=== PATIENT | male | born 1965 | race Caucasian/White ===

== ENCOUNTER 2018-04-18 20:44 | Observation (INO) ==
--- NOTE | 2018-04-18 21:54 | Emergency Department Note ---
Disposition Clinical Impression: Cellulitis and abscess of left leg Disposition: Admitted As Inpatient Condition: Good Forms: ED Satisfaction Letter Time of Disposition: 22:24 General Adult HPI - General Chief complaint: ED Wound/Laceration Stated complaint: Spider Bite L Calf Time Seen by Provider: 04/18/18 21:21 Source: patient Limitations: no limitations Nursing Notes Reviewed: Yes Vital Signs Reviewed: Yes - History of Present Illness HPI Narrative: 52 yo male presents with a 2 day history of "spider bite" to left lower leg. He first noticed the spot on his lateral calf yesterday evening. states that it had 2 small points in the middle, one was a scab and one was a pustule with surrounding erythema the size of the end of his finger. He popped the pustule, but nothing came out. The area of erythema has increased significantly today, as well as new onset swelling of circumferential calf and warmth. PMH of asthma, GERD, HTN. Current smoker. Rare alcohol use. Denies drug use. Pain Scale: 10 - Related Data Home Medications Medication Instructions Recorded Confirmed Albuterol Sulfate [Ventolin Hfa] 2 puff IH Q6H PRN 04/18/18 04/18/18 Amlodipine Besylate 10 mg PO DAILY 04/18/18 04/18/18 EPINEPHrine [Epipen] 0.3 mg IM ONCE PRN 04/18/18 04/18/18 Escitalopram [Lexapro] 10 mg PO DAILY 04/18/18 04/18/18 Lisinopril 2.5 mg PO DAILY 04/18/18 04/18/18 Meloxicam [Mobic] 15 mg PO DAILY 04/18/18 04/18/18 Montelukast [Singulair] 10 mg PO DAILY 04/18/18 04/18/18 Omeprazole [PriLOSEC] 40 mg PO DAILY 04/18/18 04/18/18 Quetiapine Fumarate [SEROquel] 100 mg PO HS 04/18/18 04/18/18 diazePAM [Valium] 10 mg PO BID 04/18/18 04/18/18 Allergies Allergy/AdvReac Type Severity Reaction Status Date / Time venom-honey bee Allergy Swelling Verified 12/22/17 16:40 [bee venom (honey bee)] of Lip/Tongue/Throat Constitutional: Denies: fever, chills Eyes: Denies: vision change ENT ED: Denies: congestion Cardiovascular: Denies: chest pain Respiratory: Reports: dyspnea (chronic). Denies: cough Gastrointestinal: Denies: abdominal pain, nausea, vomiting, diarrhea, constipation Genitourinary: Denies: dysuria Musculoskeletal: Reports: back pain (chronic) Neurological: Denies: headache Past Medical History - Past Medical History Medical history: Reports: asthma, hypertension Surgical history: Reports: herniorrhaphy (PHAN LAP UMB HERNIA 03/20/2016), other (T&A; nasal reconstruction; hyperplastic polyps on colonoscopy 10/2015) Psychiatric history: Reports: bipolar, depression - Social History Smoking Status: Current every day smoker Smokeless Tobacco Status: No Alcohol use: Reports: none Drug use: Reports: none Physical Exam - General Limitations: no limitations General appearance: alert, in no apparent distress - Head Head exam: atraumatic, normocephalic, normal inspection - Eye Eye exam: Present: normal appearance - ENT ENT exam: mucous membranes moist - Neck Neck exam: Present: normal inspection - Chest Chest inspection: Present: normal inspection - Respiratory Respiratory exam: Present: normal lung sounds bilaterally - Cardiovascular Cardiovascular exam: Present: regular rate, normal rhythm, normal heart sounds - Abdominal Exam Abdominal exam: Present: soft, Non-Tender. Absent: tenderness, distention, guarding, rebound, rigidity - Extremities Exam Extremities exam: Absent: normal inspection - Expanded Lower Extremity Exam Lower leg exam: Present: swelling (circumferential swelling of left calf at the level of erythema, warmth over area of swelling), erythema (2.5x2.5cm area of erythema (petechial on edges becoming coalescent for main area) over left lateral calf with central blackened native with 2 pinpoint spots - no fluctuance or necrosis) Neurovascular/Tendon exam: Absent: pulse deficit - Back Exam Back exam: Present: normal inspection - Neurological Exam Neurological exam: Present: alert, oriented X3 - Psychiatric Psychiatric exam: Present: normal affect, normal mood - Skin Skin exam: Present: warm, dry, intact, normal color Course Course Narrative: 52 yo male with possible spider bite vs cellulitis vs early abscess. Blackened center may become necrotic in the next 12-48 hours. Currently nothing to debride , no fluctuance. Admit for IV antibiotics overnight. He will be re-assessed in the morning. Vital Signs Temperature 98.1 F 04/18/18 20:45 Pulse Rate 78 04/18/18 20:45 Respiratory Rate 16 04/18/18 20:45 Blood Pressure 140/82 04/18/18 20:45 O2 Sat by Pulse Oximetry 95 04/18/18 20:45 Temperature 98.1 F 04/18/18 20:45 Pulse Rate 78 04/18/18 20:45 Respiratory Rate 16 04/18/18 20:45 Blood Pressure 140/82 04/18/18 20:45 O2 Sat by Pulse Oximetry 95 04/18/18 20:45 Oxygen Delivery Oxygen Delivery Room Air Medical Decision Making - Lab Data Result diagrams: 04/18/18 21:48 Attestation Statement - Attestation Attestation: I examined this patient and my medical decision-making was reviewed with the Resident Physician. I agree with the documented findings, disposition and treatment plan as described except to the extent set forth below. Findings consistent with cellulitis of the left lower extremity with necrotic center. I would proceed with observation overnight given the rapid progression of cellulitis. We will start vancomycin and Cipro for gram-negative coverage, admitted for further management.
[2018-04-18 22:02] LABS: Basophils # 0.1 K/mcL (0.0-0.2); Basophils % 0.6 %; Eosinophils # 0.1 K/mcL (0.0-0.6); Eosinophils % 1.4 %; Hematocrit 42.2 % (37.5-50.1); Hemoglobin 14.5 g/dL (12.9-16.9); Immature Granulocytes % 0.3 % (0-4); Lymphocytes # 2.4 K/mcL (0.6-4.6); Mean Corpuscular HGB Conc 34.4 g/dL (31.6-35.5); Mean Corpuscular Volume 93.2 fL (83.0-100.0); Monocytes # 1.2 K/mcL (0.0-1.3); Monocytes % 11.2 %; Neutrophils # 6.6 K/mcL (1.6-8.9); Platelet Count 198 K/mcL (140-400); Red Blood Count 4.53 M/mcL (4.19-5.50); Red Cell Distribution Width 12.5 % (11.5-14.5); Segmented Neutrophils % 63.5 %
[2018-04-18 22:25] LABS: Alanine Aminotransferase 12 Units/L (7-52); Albumin 4.5 g/dL (3.5-5.7); Alkaline Phosphatase 78 Units/L (34-104); Aspartate Amino Transferase 12 Units/L (13-39); BUN/Creatinine Ratio 19 (6-26); Bilirubin,Total 0.5 mg/dL (0.3-1.0); Blood Urea Nitrogen 19 mg/dL (6-20); C-Reactive Protein 24 mg/L (Less than 10); Calcium 9.9 mg/dL (8.6-10.3); Carbon Dioxide 25 mEq/L (23-29); Chloride 107 mEq/L (98-107); Globulin 2.2 g/dL (2.4-3.5); Glucose 103 mg/dL (70-105); Osmolality,Calculated 289 (280-300); Potassium 3.7 mEq/L (3.5-5.1); Sodium 138 mEq/L (136-145); Total Protein 6.7 g/dL (6.4-8.9); eGFR For Non-African Americans > 60 (> 60)
[2018-04-18] MEDS ORDERED: *HR* FentaNYL (PF) 100 MCG/2 ML VIAL IVP ONE (22:48)
[2018-04-19] MEDS ORDERED: Naloxone 0.4 MG/ML INJ IVP PRN (03:43)
[2018-04-19] MEDS ORDERED: Acetaminophen 325 MG TABLET PO PRN (03:43)
--- NOTE | 2018-04-19 03:52 | Internal Med History&Physical ---
Date of Encounter: 04/19/18 Time of Encounter: 03:30 Internal Medicine - H&P: HPI Chief complaint: Cellulitis Admitted From: Home Plans for Post Hospital Care: Home History of present illness: Mr. Valenzuela is a 52 year old male Patient states yesterday he noticed a area of redness on his left lower leg after removing his boots after coming home from work. The area was tender to palpation and about the size of his fingernail. Gradually grew in size, he attempted to pop it but nothing seemed to come out. His thought it looked like he was bit by a bug, as there were two small openings in the middle of the redness. Patient does not remember getting bit, feeling a bite, or seeing any bugs in his boots or in his surroundings[place] works in the [employer] however. He has never had anything like this before. He denies associating symptoms like nausea, vomiting, fever, chills, chest pain, abdominal pain. He is able to ambulate normally, but does have some pain in the left leg in the area of his wound. The area of redness has now grown to the size of about 3 cm in circumference and has increased in pain. This prompted him to come to the emergency room for further evaluation. The emergency room patient's blood work showed a CRP of 24 but otherwise vitals and lab work was within normal limits. No imaging was done in the emergency room and no cultures were drawn prior to starting antibiotic therapy. He was admitted for further management of his cellulitis. Past Med Surg Social Fam HX - Past Medical History Medical history: asthma, GERD, hypertension Additional medical history: pinched sciatica nerve Psychiatric history: bipolar, depression - Past Surgical History Surgical History: herniorrhaphy, other Additional surgical history: nasal reconstruction, colonoscopy-hyperplastic polyps - Social History Smoking Status: Current every day smoker Smokeless Tobacco Status: No Alcohol use: none Drug use: none Internal Medicine - H&P: Meds Albuterol Sulfate [Ventolin Hfa] 2 puff IH Q6H PRN 04/18/18 [History] Amlodipine Besylate 10 mg PO DAILY 04/18/18 [History] EPINEPHrine [Epipen] 0.3 mg IM ONCE PRN 04/18/18 [History] Escitalopram [Lexapro] 10 mg PO DAILY 04/18/18 [History] Lisinopril 2.5 mg PO DAILY 04/18/18 [History] Meloxicam [Mobic] 15 mg PO DAILY 04/18/18 [History] Montelukast [Singulair] 10 mg PO DAILY 04/18/18 [History] Omeprazole [PriLOSEC] 40 mg PO DAILY 04/18/18 [History] Quetiapine Fumarate [SEROquel] 100 mg PO HS 04/18/18 [History] diazePAM [Valium] 10 mg PO BID 04/18/18 [History] 3 Allergy/AdvReac Type Severity Reaction Status Date / Time venom-honey bee Allergy Swelling Verified 12/22/17 16:40 [bee venom (honey bee)] of Lip/Tongue/Throat All Systems PM: A 10-system review of systems was performed and is negative for pertinent findings except as documented above in the HPI. - Constitutional Vitals: Temp Pulse Resp BP Pulse Ox 97.9 F 59 16 110/63 96 04/19/18 00:54 04/19/18 00:54 04/19/18 00:54 04/19/18 00:54 04/19/18 00:54 General appearance: Present: cooperative, A&O X 3, pleasant, no acute distress, answers questions appropriately - Head Head exam: Present: normal inspection - Eye Eye exam: Present: EOMI, normal appearance - Respiratory Respiratory exam: Present: decreased breath sounds, wheezes. Absent: chest wall tenderness, respiratory distress - Cardiovascular Cardiovascular exam: Present: RRR. Absent: diastolic murmur, systolic murmur - GI/Abdominal GI/Abdominal exam: Present: normal bowel sounds, soft. Absent: tenderness - Extremities Exam Extremities exam: Present: tenderness, warm, radial pulses palpable and symmetrical. Absent: pedal edema Additional comments: Left lower extremity tender to palpation in the left lateral andre midway down lower leg. There is an area of erythema approximately 3-4 cm in circumference with mild swelling and to small circular openings in the center. No erythema beyond the borders of the wound. No other lesions noted on lower legs - Neurological Exam Neurological exam: Present: no focal deficits, strengths equal and symetr throughout. Absent: motor sensory deficit, facial droop, speech deficit - Skin Skin exam: Present: dry, normal color, warm Additional comments: Except as above on the extremities exam Internal Med - H&P Results - Labs CBC & Chem 7: 04/18/18 21:48 04/18/18 21:48 - Assessment and plan (1) Cellulitis of left leg Current Visit: Yes Status: Acute Assessment and plan: Patient has left lower leg cellulitis. Appears superficial but there is some swelling in the area. Tenderness to palpation no obvious abscess seen. Emergency room started patient on vancomycin and ciprofloxacin. No blood cultures were drawn prior to starting antibiotics no wound cultures drawn has no culture bone material present. The area of erythema has been traced with a permanent marker, and currently there is no evidence of erythema encroachment beyond the border of this line. Patient does have a history of allergy to bee venom, but this does not appear to be from a bee sting. Continue antibiotics Continue to monitor for worsening signs of infection or anaphylactic reaction (2) Wheezing on expiration Current Visit: Yes Status: Acute Assessment and plan: Patient has significant smoking history one pack cigarettes per day. He is wheezy on exam, and uses nebulizers and breathing treatments at home. Duonebs as needed Continue to monitor (3) Nicotine dependence Current Visit: Yes Status: Acute Assessment and plan: 1 pack per day smoker. Wheezy on exam, will use breathing treatments while in the hospital Qualifiers: Qualified Code(s): F17.210 - Nicotine dependence, cigarettes, uncomplicated (4) GERD (gastroesophageal reflux disease) Current Visit: Yes Status: Acute Assessment and plan: Patient takes omeprazole at home. Continue current management Qualifiers: Qualified Code(s): K21.9 - Gastro-esophageal reflux disease without esophagitis (5) DVT prophylaxis Current Visit: Yes Status: Acute Assessment and plan: Heparin subcutaneous - Time Spent With Patient Total time spent is greater than 50% in coordination of care (as documented) at patient's floor/unit and/or counseling patient: Greater than 35 minutes
[2018-04-19] MEDS ORDERED: Vancomycin 1,750 MG in 0.9 % Sodium Chloride 250 ML IVPB SCH (04:00)
[2018-04-19] MEDS: *HR* Heparin 5,000 UNIT/ML VIAL SQ SCH ×2 (05:04→18:41)
[2018-04-19] MEDS: *HR* HYDROcodone/Acet 5/325 mg TABLET PO PRN ×3 (05:05→20:58)
[2018-04-19 06:42] LABS: Hematocrit 41.7 % (37.5-50.1); Hemoglobin 14.1 g/dL (12.9-16.9); Mean Corpuscular HGB Conc 33.8 g/dL (31.6-35.5); Mean Corpuscular Hemoglobin 32.5 pg (28.0-33.3); Mean Corpuscular Volume 96.1 fL (83.0-100.0); Mean Platelet Volume 9.3 fL (9.4-12.4); Platelet Count 186 K/mcL (140-400); Red Blood Count 4.34 M/mcL (4.19-5.50); Red Cell Distribution Width 12.4 % (11.5-14.5)
[2018-04-19 06:59] LABS: BUN/Creatinine Ratio 18 (6-26); Blood Urea Nitrogen 18 mg/dL (6-20); Calcium 9.2 mg/dL (8.6-10.3); Carbon Dioxide 21 mEq/L (23-29); Chloride 107 mEq/L (98-107); Glucose 157 mg/dL (70-105); Osmolality,Calculated 291 (280-300); Potassium 3.8 mEq/L (3.5-5.1); Sodium 138 mEq/L (136-145); eGFR For Non-African Americans > 60 (> 60)
[2018-04-19] MEDS: Ipratropium/Albuterol Neb 3 ML IH PRN ×2 (08:17→18:49)
[2018-04-19] MEDS ORDERED: *HR* FentaNYL (PF) 100 MCG/2 ML VIAL IVP ONE (10:16)
[2018-04-19] MEDS ORDERED: Lidocaine -MPF 1% 5 ML AMPUL INFILT ONE (10:46)
--- NOTE | 2018-04-19 11:59 | General Surgery Consult Note ---
Date of Encounter: 04/19/18 Time of Encounter: 11:45 Assessment and Plan (1) Cellulitis and abscess of left leg Current Visit: Yes Status: Acute I&D complete at the bedside Cultures obtained- gram stain, aerobic and anaerobic cultures May transition to PO antibiotics May discharge from a surgical standpoint May remove packing 04/20/18 and cover with dry dressing F/U prn with surgery Please call with any further questions/concerns History of Present Illness Consult date: 04/19/18 Reason for consult: other (LLE cellulitis/abscess) Requesting physician: Giana Kaye History of present illness: Mr. Valenzuela is a 52 year old male who presented to the ED last evening with complaints of LLE pain and redness. 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 He states when he returned home that night and changed his clothes he noticed a reddened area to his LLE. He states that it looked like a bite linda. He reports that the area has continued to have increased tenderness and redness. He reports a central area which is black which concerned him. He reported to the ED for further evaluation. He denies any fevers or chills. Denies any shortness of breath or chest pains. Denies any numbness/tingling to his LLE. He states that he has never experienced anything like this in the past. We have been asked to see and evaluate the patient for further recommendations. Past Med Surg Social Fam HX - Past Medical History Source: patient Medical history: asthma, GERD, hypertension Additional medical history: pinched sciatica nerve Psychiatric history: bipolar, depression - Past Surgical History Surgical History: herniorrhaphy (lap umbilical repair 07/2016), other (T&A, colonoscopy 10/2015) Additional surgical history: nasal reconstruction, colonoscopy-hyperplastic polyps - Social History Smoking Status: Current every day smoker Smokeless Tobacco Status: No Alcohol use: none Drug use: none Occupational status: employed Current living situation: Home - Independent Activity Level: Independent ambulation - Family History Father Living Status: Age at : 57 Cause of : Lymphoma Hx Family Cancer: Yes (Lymphoma) Sister Hx Family Neurologic Disorders: Yes (CVA) Mother Living Status: Age at : 57 Cause of : Pancreatic cancer Hx Family Cancer: Yes (Pancreatic cancer) Paternal Grandmother Living Status: Cause of : Pancreatic cancer Hx Family Cancer: Yes (Pancreatic cancer) Maternal Grandmother Living Status: Hx Family Cardiac Disorders: Yes (CHF) Medications and Allergies Albuterol Sulfate [Ventolin Hfa] 2 puff IH Q6H PRN 04/18/18 [History] Amlodipine Besylate 10 mg PO DAILY 04/18/18 [History] EPINEPHrine [Epipen] 0.3 mg IM ONCE PRN 04/18/18 [History] Escitalopram [Lexapro] 10 mg PO DAILY 04/18/18 [History] Lisinopril 2.5 mg PO DAILY 04/18/18 [History] Meloxicam [Mobic] 15 mg PO DAILY 04/18/18 [History] Montelukast [Singulair] 10 mg PO DAILY 04/18/18 [History] Omeprazole [PriLOSEC] 40 mg PO DAILY 04/18/18 [History] Quetiapine Fumarate [SEROquel] 100 mg PO HS 04/18/18 [History] diazePAM [Valium] 10 mg PO BID 04/18/18 [History] 3 Allergy/AdvReac Type Severity Reaction Status Date / Time venom-honey bee Allergy Swelling Verified 12/22/17 16:40 [bee venom (honey bee)] of Lip/Tongue/Throat Review of Systems All systems PM: reviewed and no additional remarkable complaints except as stated (in the HPI) All systems PM: The remainder of the systems were reviewed and are negative General Surgery Exam Initial Vital Signs Temp Pulse Resp BP Pulse Ox 98.1 F 78 16 140/82 95 04/18/18 20:45 04/18/18 20:45 04/18/18 20:45 04/18/18 20:45 04/18/18 20:45 - General physical appearance well developed, well nourished, no distress - Eyes PERRL, normal ocular movement - ENT normal mucosa, atraumatic, normocephalic - Neck trachea midline - Respiratory normal expansion, normal respiratory effort, clear to auscultation - Cardiovascular Cardiovascular exam: Present: RRR - Abdomen Abdomen general surgery: Present: bowel sounds present, soft, non tender - Integumentary Integumentary general surgery: Present: warm and dry, other (LLE with area of ecchymosis with central necrosis and minimal fluctuance, tender to examination) - Neurologic Present: CN 2-12 grossly intact - Musculoskeletal Present: normal gait, normal posture - Psychiatric Psychiatric general surgery: Present: appropriate, oriented to person, oriented to place, oriented to time, speech is normal, memory intact Exam Initial Vital Signs Temp Pulse Resp BP Pulse Ox 98.1 F 78 16 140/82 95 04/18/18 20:45 04/18/18 20:45 04/18/18 20:45 04/18/18 20:45 04/18/18 20:45 Results - Labs 04/19/18 05:54 04/19/18 05:54 Abnormal lab results MPV 9.3 fL (9.4-12.4) L 04/19/18 05:54 Carbon Dioxide 21 mEq/L (23-29) L 04/19/18 05:54 Glucose 157 mg/dL (70-105) H 04/19/18 05:54 AST 12 Units/L (13-39) L 04/18/18 21:48 C-Reactive Protein 24 mg/L (Less than 10) H 04/18/18 21:48 Globulin 2.2 g/dL (2.4-3.5) L 04/18/18 21:48 Diabetes panel 04/19/18 Range/Units 05:54 Sodium 138 (136-145) mEq/L Potassium 3.8 (3.5-5.1) mEq/L Chloride 107 (98-107) mEq/L Carbon Dioxide 21 L (23-29) mEq/L BUN 18 (6-20) mg/dL Creatinine 1.00 (0.70-1.30) mg/dL Glucose 157 H (70-105) mg/dL Calcium 9.2 (8.6-10.3) mg/dL Calcium panel 04/19/18 Range/Units 05:54 Calcium 9.2 (8.6-10.3) mg/dL Pituitary panel 04/19/18 Range/Units 05:54 Sodium 138 (136-145) mEq/L Potassium 3.8 (3.5-5.1) mEq/L Chloride 107 (98-107) mEq/L Carbon Dioxide 21 L (23-29) mEq/L BUN 18 (6-20) mg/dL Creatinine 1.00 (0.70-1.30) mg/dL Glucose 157 H (70-105) mg/dL Calcium 9.2 (8.6-10.3) mg/dL Adrenal panel 04/19/18 Range/Units 05:54 Sodium 138 (136-145) mEq/L Potassium 3.8 (3.5-5.1) mEq/L Chloride 107 (98-107) mEq/L Carbon Dioxide 21 L (23-29) mEq/L BUN 18 (6-20) mg/dL Creatinine 1.00 (0.70-1.30) mg/dL Glucose 157 H (70-105) mg/dL Calcium 9.2 (8.6-10.3) mg/dL All other labs normal. Consult Discharge Plan - Plan Referrals: Jaja Krishna, [employer] [Primary Care Provider] - - Attending Attestation For this encounter, I have reviewed the FIRE PROTECTION INSPECTOR or PA documentation, treatment plan, and medical decision making; and I have had face to face time with this patient.
--- NOTE | 2018-04-19 12:02 | General Surgery Procedure Note ---
Date of procedure: 04/19/18 Pre-op diagnosis: LLE cellulitis/abscess Post-op diagnosis: same Procedure: After informed consent was obtained and timeout completed, the patient's left lower extremity was prepped and draped. The area was localized with 7 ML's of 1 % lidocaine. After achieving appropriate localization, a cruciate incision was made over the most fluctuant area using a size 11 blade. There was immediate return of a small amount of blood tinged drainage. The cavity was further opened and decompressed using hemostats. Gram stain, aerobic, and anaerobic cultures were obtained. The cavity was then packed with 1/4 inch plain gauze and covered with a dry dressing. Complications: none Anesthesia: local Surgeon: Indira Street Estimated blood loss (cc): 1 Pathology: other (gram stain, aerobic and anaerobic cultures) Condition: stable Disposition: no change
[2018-04-19] MEDS ORDERED: Nicotine 14 MG PATCH.TD24 TD SCH (13:30)
--- NOTE | 2018-04-19 15:38 | Event Note ---
Date of Encounter: 04/19/18 Time of Encounter: 15:37 Evaluated patient earlier today. His pain is improved in the left lower extremity. However it gets worse with any movement. Consulted surgery and patient underwent incision and drainage. Will follow culture results. Continue IV antibiotics.
[2018-04-19] MEDS: diazePAM 10 MG TABLET PO SCH (20:32)
[2018-04-20] MEDS: *HR* Heparin 5,000 UNIT/ML VIAL SQ SCH (05:34)
[2018-04-20 06:46] VITALS: BP 109/65
--- NOTE | 2018-04-20 09:47 | Discharge Summary ---
- NOTES TO OUTPATIENT PROVIDER Notes to Outpatient Provider: Patient was hospitalized with cellulitis involving his left lower extremity. Following traumatic injury. He was given IV antibiotics and then underwent I&D yesterday. He is now doing better. He is stable for discharge home on oral antibiotics. He will follow up with his primary care provider and surgery as outpatient for further management. Orders not resulted at time of discharge: Pending orders 04/19/18 11:55 Culture,Anaerobic [RM] Stat Culture,Wound [RM] Stat Gram Stain [RM] Stat 04/20/18 10:00 Vancomycin,Trough Timed Date of Encounter: 04/20/18 Time of Encounter: 09:46 - Discharge Diagnosis (1) Cellulitis and abscess of left leg Priority: Primary Status: Acute (2) Asthma Priority: Secondary Status: Chronic Qualifiers: Asthma severity: mild Asthma persistence: intermittent Asthma complication type: uncomplicated Qualified Code(s): J45.20 - Mild intermittent asthma, uncomplicated (3) GERD (gastroesophageal reflux disease) Priority: Secondary Status: Acute Qualifiers: Esophagitis presence: without esophagitis Qualified Code(s): K21.9 - Gastro -esophageal reflux disease without esophagitis (4) Nicotine dependence Priority: Secondary Status: Chronic Qualifiers: Nicotine product type: cigarettes Substance use status: uncomplicated Qualified Code(s): F17.210 - Nicotine dependence, cigarettes, uncomplicated Hospital course: Mr. Valenzuela is a 52 year old male patient with history of hypertension, asthma who was hospitalized here with cellulitis involving his left lower extremity. Following traumatic injury. He had a 5 x 5 cm local cellulitis wound on the anterior andre. There was a black spot at that center which was bothering him. He was given IV antibiotics and then underwent I&D yesterday. He is now doing better. He is stable for discharge home on oral antibiotics. He will follow up with his primary care provider and surgery as outpatient for further management. Discharge discussed with: patient, nurse - Time Spent with Patient Total time spent providing and/or coordinating discharge services: Less than 30 minutes (25 min) - Discharge Medications Prescriptions: OxyCODONE/APAP 5/325 [Percocet 5/325 MG] 1 each PO Q6HR PRN 5 Days #14 tablet PRN Reason: Pain Sulfamethoxazole/Trimeth DS [Bactrim DS] 1 each PO BID #20 tablet Home Medications: Albuterol Sulfate [Ventolin Hfa] 2 puff IH Q6H PRN 04/18/18 [History] Amlodipine Besylate 10 mg PO DAILY 04/18/18 [History] EPINEPHrine [Epipen] 0.3 mg IM ONCE PRN 04/18/18 [History] Escitalopram [Lexapro] 10 mg PO DAILY 04/18/18 [History] Lisinopril 2.5 mg PO DAILY 04/18/18 [History] Meloxicam [Mobic] 15 mg PO DAILY 04/18/18 [History] Montelukast [Singulair] 10 mg PO DAILY 04/18/18 [History] Omeprazole [PriLOSEC] 40 mg PO DAILY 04/18/18 [History] Quetiapine Fumarate [Seroquel] 100 mg PO HS 04/18/18 [History] diazePAM [Valium] 10 mg PO BID 04/18/18 [History] OxyCODONE/APAP 5/325 [Percocet 5/325 MG] 1 each PO Q6HR PRN 5 Days #14 tablet [Rx] Sulfamethoxazole/Trimeth DS [Bactrim DS] 1 each PO BID #20 tablet 04/20/18 [Rx] Allergies/Adverse Reactions: 3 Allergy/AdvReac Type Severity Reaction Status Date / Time venom-honey bee Allergy Swelling Verified 12/22/17 16:40 [bee venom (honey bee)] of Lip/Tongue/Throat Date of admission: 04/18/18 23:46 Primary care physician: Jaja Krishna CNP Consults: 04/19/18 09:45 Consult to Surgery [CONS] Routine Consulting Provider: [facility] Reason for Consult: Cellulitis/ possible abscess Time Notified: 09:45 Call Completed: Yes Discharging clinician: Giana Kaye Anticipated date of discharge: 04/20/18 - Constitutional Vitals: Temp Pulse Resp BP Pulse Ox 97.4 F L 55 16 109/65 95 04/20/18 06:38 04/20/18 06:38 04/20/18 06:38 04/20/18 06:38 04/20/18 06:38 General appearance: Present: cooperative, A&O X 3, pleasant, no acute distress, answers questions appropriately - Respiratory Respiratory exam: Present: CTAB. Absent: accessory muscle use, rales, rhonchi, wheezes - Cardiovascular Cardiovascular exam: Present: RRR, +S1, +S2. Absent: diastolic murmur, gallop, rubs, systolic murmur - GI/Abdominal GI/Abdominal exam: Present: normal bowel sounds, soft, no peritoneal signs. Absent: distended, tenderness - Extremities Exam Extremities exam: Present: warm, radial pulses palpable and symmetrical. Absent : calf tenderness, cyanotic, pedal edema Additional comments: Erythema with swelling involving a 5 cm area on the anterior surface the left leg. Wound open. Currently packed. - Neurological Exam Neurological exam: Present: alert, CN II-XII intact, oriented X3, no focal deficits. Absent: facial droop, speech deficit - Patient Status Disposition: Home, Self-Care Condition: Good Functional capacity at discharge: independent ambulation Overall status at discharge: patient is back to baseline - Discharge Instructions Instructions: Cellulitis (DC), Incision and Drainage (DC) Follow Up With: Indira Street HIGH SCHOOL ASSISTANT PRINCIPAL [Advanced Practice Nurse] - (PLEASE FOLLOW UP ON AN NEEDED BASIS. ) Jaja Krishna HIGH SCHOOL ASSISTANT PRINCIPAL [Primary Care Provider] - (In 1-2 weeks. Patient to schedule as soon as possible, as office is closed today.) Additional Instructions: Follow-up with surgery as needed. Drink plenty of water while taking Bactrim - Diet and Activity Activity: increase activity as tolerated Diet: advance to your usual diet
[2018-04-20] MEDS: diazePAM 10 MG TABLET PO SCH (10:12)
[2018-04-20] MEDS: *HR* HYDROcodone/Acet 5/325 mg TABLET PO PRN (10:46)
[2018-04-20] MEDS ORDERED: Aminoglycoside Consult 1 EACH MC ONE (12:26)
== END 2018-04-20 12:27 | disposition home or self-care (01) ==
LOC: EMEROO 20:44 → 3ANU 20:44 → SUATTDRO 23:46 → 3ANU 04-19 00:14
PROVIDERS: ADMIT Internal Medicine; ATTEND Internal Medicine

== ENCOUNTER 2018-07-15 15:11 | Observation (INO) ==
[2018-07-15] MEDS ORDERED: Ipratropium/Albuterol Neb 3 ML IH ONE (15:57)
[2018-07-15] MEDS ORDERED: methylPREDNISolone 125 MG/2 ML VIAL IVP ONE (15:57)
--- NOTE | 2018-07-15 16:09 | Emergency Department Note ---
Disposition Clinical Impression: Asthma with exacerbation Qualifiers: Asthma severity: unspecified severity Asthma persistence: unspecified Qualified Code(s): J45.901 - Unspecified asthma with (acute) exacerbation Disposition: Admitted As Inpatient Condition: Fair Referrals: Jaja Krishna, RACHID [Primary Care Provider] - Forms: ED Satisfaction Letter Time of Disposition: 18:25 SOB HPI - General Chief Complaint: ED Shortness of Breath/Dyspnea Stated Complaint: herminia Time Seen by Provider: 07/15/18 15:39 Nursing Notes Reviewed: Yes Vital Signs Reviewed: Yes - History of Present Illness 52 year old male presents for difficulty breathing and cough. Patient states he was seen in ED yesterday for asthma exacerbation and was given 3 breathing viet tments and prednisone. Patient was encouraged to stay and be admitted, but patient decided to go home because he needed to take his grandson's car seat home. Patient reports same symptoms as yesterday, no worsening. Patient states he tried 3 neb treatments at home without relief. Reports dry cough. Also reports chest tightness and migraine headache. Denies fever/chills, nausea, swelling, abdominal pain, diarrhea, sore throat, runny nose, nasal congestion, ear pain, facial pain. Patient reports medical history of asthma, HTN, arthritis, bipolar. Denies diagnosis of COPD. Current smoker. Patient states he cannot get flu or pneumonia shot due to allergy of hives. - Related Data Home Medications Medication Instructions Recorded Confirmed Albuterol Sulfate [Ventolin Hfa] 2 puff IH Q6H PRN 04/18/18 04/18/18 Amlodipine Besylate 10 mg PO DAILY 04/18/18 04/18/18 EPINEPHrine [Epipen] 0.3 mg IM ONCE PRN 04/18/18 04/18/18 Escitalopram [Lexapro] 10 mg PO DAILY 04/18/18 04/18/18 Lisinopril 2.5 mg PO DAILY 04/18/18 04/18/18 Meloxicam [Mobic] 15 mg PO DAILY 04/18/18 04/18/18 Montelukast [Singulair] 10 mg PO DAILY 04/18/18 04/18/18 Omeprazole [PriLOSEC] 40 mg PO DAILY 04/18/18 04/18/18 Quetiapine Fumarate [Seroquel] 100 mg PO HS 04/18/18 04/18/18 diazePAM [Valium] 10 mg PO BID 04/18/18 04/18/18 Previous Rx's Medication Instructions Recorded Sulfamethoxazole/Trimeth DS 1 each PO BID #20 tablet 04/20/18 [Bactrim DS] Albuterol Sulfate [Albuterol 4 puff IH Q4HR #1 hfa.aer.ad 07/15/18 Inhaler] Allergies Allergy/AdvReac Type Severity Reaction Status Date / Time venom-honey bee Allergy Swelling Verified 07/15/18 15:17 [bee venom (honey bee)] of Lip/Tongue/Throat Constitutional: Denies: fever, chills Eyes: Denies: eye pain, eye discharge ENT ED: Denies: ear pain, throat pain Cardiovascular: Denies: chest pain, palpitations Respiratory: Reports: cough, dyspnea Gastrointestinal: Denies: abdominal pain, nausea Genitourinary: Denies: urgency, dysuria Musculoskeletal: Denies: back pain, neck pain Integumentary: Denies: rash, abrasion Neurological: Reports: headache. Denies: weakness Past Medical History - Past Medical History Medical history: Reports: asthma, GERD, hypertension Surgical history: Reports: herniorrhaphy (lap umbilical repair 07/2016), other (T&A, colonoscopy 10/2015) Psychiatric history: Reports: bipolar, depression - Social History Smoking Status: Current every day smoker Smokeless Tobacco Status: No Alcohol use: Reports: none Drug use: Reports: none Physical Exam - General General appearance: alert - Head Head exam: atraumatic, normocephalic - Eye Eye exam: Present: PERRL, EOMI - ENT ENT exam: normal oropharynx, mucous membranes moist - Neck Neck exam: Present: normal inspection - Chest Chest inspection: Present: normal inspection, symmetric chest wall rise - Respiratory Respiratory exam: Present: respiratory distress, wheezes (diffuse inspiratory and expiratory wheezing ) - Cardiovascular Cardiovascular exam: Present: regular rate, normal rhythm - Abdominal Exam Abdominal exam: Present: soft, Non-Tender, normal bowel sounds. Absent: distention, guarding, rebound, rigidity - Extremities Exam Extremities exam: Present: normal inspection. Absent: tenderness, pedal edema, joint swelling - Neurological Exam Neurological exam: Present: alert, oriented X3 - Psychiatric Psychiatric exam: Present: normal affect, normal mood - Skin Skin exam: Present: warm, dry, intact, normal color Course Course Narrative: 52 year old male with history of asthma and smoking presents for difficulty breathing and cough. Patient was seen in ED yesterday for same symptoms. Patient was treated with 3 breathing treatments and prednisone for asthma exacerbation. Patient was encouraged to be admitted due to severity of symptoms, and patient decided to go home. Patient returns and states he's ready to be admitted. Patient is alert and oriented. Patient is in respiratory distress with audible wheezing and coughing. He is tachypenic with oxygen saturation 92% on room air. Other vitals are WNL. On exam, there are diffuse inspiratory and expiratory wheezes on lung auscultation. Will check labwork. CXR yesterday was negative, will not repeat. Will provide duoNeb and IV steroid. Will provide IBU for headache. - Reevaluation(s) Reevaluation #1: CBC and BMP are unremarkable. Troponin is negative. After breathing treatment, patient states breathing is "a little" better. Tachypnea is resolved. Oxygen saturation of 97% on room air. Patient is still audibly wheezing. There are increased diffuse inspiratory and expiratory wheezes on lung auscultation. Time: 17:29 Reevaluation #2: Spoke with hospitalist Dr. Hampton who agrees to admit. Will provide levaquin, per hospitalist recommendation. Time: 18:25 Vital Signs Temperature 98.1 F 07/15/18 15:15 Pulse Rate 81 07/15/18 15:15 Respiratory Rate 22 07/15/18 15:15 Blood Pressure 162/85 07/15/18 15:15 O2 Sat by Pulse Oximetry 92 07/15/18 15:15 Temperature 98.1 F 07/15/18 15:15 Pulse Rate 79 07/15/18 15:44 Respiratory Rate 22 07/15/18 15:44 Blood Pressure 154/90 07/15/18 15:44 O2 Sat by Pulse Oximetry 95 07/15/18 15:44 Oxygen Delivery Oxygen Delivery Room Air Shortness of Breath/Dyspnea - Medical Records Medical records reviewed: Yes I reviewed the patient's medical records. - Lab Data Lab results reviewed: Yes I reviewed the patient's lab results. - Radiology Data Radiology results reviewed: Yes I reviewed the patient's radiology results. - EKG Data EKG attestation: Yes I reviewed and interpreted this EKG. EKG results narrative: EKG 07/15/18 15:21. Sinus rhythm. Heart rate 80. No ST segment elevation or depression. No significant change from prior EKG 07/14/18.
[2018-07-15] MEDS ORDERED: Ibuprofen 800 MG TABLET PO ONE (16:17)
--- NOTE | 2018-07-15 16:28 | Emergency Department Note ---
Disposition Clinical Impression: Asthma with exacerbation Disposition: Admitted As Inpatient Condition: Fair Referrals: Jaja Krishna, EKG MANAGER [Primary Care Provider] - Forms: ED Satisfaction Letter General Adult HPI - General Chief complaint: ED Shortness of Breath/Dyspnea Stated complaint: herminia Time Seen by Provider: 07/15/18 15:39 Nursing Notes Reviewed: Yes Vital Signs Reviewed: Yes - History of Present Illness Pain Scale: 2 - Related Data Home Medications Medication Instructions Recorded Confirmed RX: Albuterol Sulfate [Ventolin 2 puff IH Q6H PRN 04/18/18 04/18/18 Hfa] RX: Amlodipine Besylate 10 mg PO DAILY 04/18/18 04/18/18 RX: EPINEPHrine [Epipen] 0.3 mg IM ONCE PRN 04/18/18 04/18/18 RX: Escitalopram [Lexapro] 10 mg PO DAILY 04/18/18 04/18/18 RX: Lisinopril 2.5 mg PO DAILY 04/18/18 04/18/18 RX: Meloxicam [Mobic] 15 mg PO DAILY 04/18/18 04/18/18 RX: Montelukast [Singulair] 10 mg PO DAILY 04/18/18 04/18/18 RX: Omeprazole [PriLOSEC] 40 mg PO DAILY 04/18/18 04/18/18 RX: Quetiapine Fumarate [Seroquel] 100 mg PO HS 04/18/18 04/18/18 RX: diazePAM [Valium] 10 mg PO BID 04/18/18 04/18/18 Previous Rx's Medication Instructions Recorded Sulfamethoxazole/Trimeth DS 1 each PO BID #20 tablet 04/20/18 [Bactrim DS] Albuterol Sulfate [Albuterol 4 puff IH Q4HR #1 hfa.aer.ad 07/15/18 Inhaler] Allergies Allergy/AdvReac Type Severity Reaction Status Date / Time venom-honey bee Allergy Swelling Verified 07/15/18 15:17 [bee venom (honey bee)] of Lip/Tongue/Throat Constitutional: Denies: fever, chills Eyes: Denies: eye pain, eye discharge ENT ED: Denies: ear pain, throat pain Cardiovascular: Denies: chest pain, palpitations Respiratory: Reports: cough, dyspnea Gastrointestinal: Denies: abdominal pain, nausea Genitourinary: Denies: urgency, dysuria Musculoskeletal: Denies: back pain, neck pain Integumentary: Denies: rash, abrasion Neurological: Reports: headache. Denies: weakness Past Medical History - Past Medical History Medical history: Reports: asthma, GERD, hypertension Surgical history: Reports: herniorrhaphy (lap umbilical repair 07/2016), other (T&A, colonoscopy 10/2015) Psychiatric history: Reports: bipolar, depression - Social History Smoking Status: Current every day smoker Smokeless Tobacco Status: No Alcohol use: Reports: none Drug use: Reports: none Physical Exam - General General appearance: alert Course Vital Signs Temperature 98.1 F 07/15/18 15:15 Pulse Rate 81 07/15/18 15:15 Respiratory Rate 22 07/15/18 15:15 Blood Pressure 162/85 07/15/18 15:15 O2 Sat by Pulse Oximetry 92 07/15/18 15:15 Temperature 98.1 F 07/15/18 15:15 Pulse Rate 72 07/15/18 16:52 Respiratory Rate 16 07/15/18 16:52 Blood Pressure 145/119 07/15/18 16:52 O2 Sat by Pulse Oximetry 94 07/15/18 16:52 Oxygen Delivery Oxygen Delivery Aerosol Mask Medical Decision Making - Lab Data Result diagrams: 07/15/18 17:16 07/15/18 17:16 Lab Results 07/15/18 07/15/18 Range/Units 17:16 17:16 WBC 10.3 (4.3-11.1) K/mcL RBC 4.87 (4.19-5.50) M/mcL Hgb 15.4 (12.9-16.9) g/dL Hct 45.7 (37.5-50.1) % MCV 93.8 (83.0-100.0) fL MCH 31.6 (28.0-33.3) pg MCHC 33.7 (31.6-35.5) g/dL RDW 12.4 (11.5-14.5) % Plt Count 201 (140-400) K/mcL MPV 8.9 L (9.4-12.4) fL Immature Gran % 0.2 (0-4) % Seg Neutrophils % 68.4 % Lymphocytes % 15.8 % Monocytes % 15.1 % Eosinophils % 0.3 % Basophils % 0.2 % Neutrophils # 7.1 (1.6-8.9) K/mcL Lymphocytes # 1.6 (0.6-4.6) K/mcL Monocytes # 1.6 H (0.0-1.3) K/mcL Eosinophils # 0.0 (0.0-0.6) K/mcL Basophils # 0.0 (0.0-0.2) K/mcL Sodium 140 (136-145) mEq/L Potassium 3.5 (3.5-5.1) mEq/L Chloride 107 (98-107) mEq/L Carbon Dioxide 23 (23-29) mEq/L BUN 14 (6-20) mg/dL Creatinine 0.77 (0.70-1.30) mg/dL Est GFR ( Amer) > 60 (> 60) Est GFR (Non-Af Amer) > 60 (> 60) BUN/Creatinine Ratio 18 (6-26) Glucose 103 (70-105) mg/dL Calculated Osmolality 291 (280-300) Calcium 9.5 (8.6-10.3) mg/dL Troponin I < 0.03 (< 0.04) ng/mL Attestation Statement - Attestation Attestation: This documentation is done with the assistance of Dragon dictation. Despite efforts made to ensure accuracy, there may be inaccuracies in operating cost clerk or spelling and typographical errors. I examined this patient and my medical decision-making was reviewed with the Resident Physician. I agree with the documented findings, disposition and treatment plan as described except to the extent set forth below. Patient seen and evaluated yesterday in our emergency department by Dr. Chaves, who wanted to admit him at the time due to persistent symptoms. And he did not have a labs done but did have a chest x-ray showed no pneumonia. Patient stated one to go h ome but is now having symptoms again. Today was seen by myself and Dr. Montaño, I agree with her evaluation management plan, I supervised care the patient's stay. Patient's having wheezing and coughing just with talking here. Repeat a chest x-ray we will we will do a breathing treatment and steroids. Get basic labs and then reassess and the determine whether he needs admission. He is in agreement with plan.
[2018-07-15 17:27] LABS: Basophils % 0.2 %; Eosinophils % 0.3 %; Hematocrit 45.7 % (37.5-50.1); Hemoglobin 15.4 g/dL (12.9-16.9); Immature Granulocytes % 0.2 % (0-4); Lymphocytes # 1.6 K/mcL (0.6-4.6); Lymphocytes % 15.8 %; Mean Corpuscular HGB Conc 33.7 g/dL (31.6-35.5); Mean Corpuscular Hemoglobin 31.6 pg (28.0-33.3); Mean Corpuscular Volume 93.8 fL (83.0-100.0); Mean Platelet Volume 8.9 fL (9.4-12.4); Monocytes # 1.6 K/mcL (0.0-1.3); Monocytes % 15.1 %; Neutrophils # 7.1 K/mcL (1.6-8.9); Platelet Count 201 K/mcL (140-400); Red Blood Count 4.87 M/mcL (4.19-5.50); Red Cell Distribution Width 12.4 % (11.5-14.5); Segmented Neutrophils % 68.4 %
[2018-07-15 17:49] LABS: BUN/Creatinine Ratio 18 (6-26); Blood Urea Nitrogen 14 mg/dL (6-20); Calcium 9.5 mg/dL (8.6-10.3); Carbon Dioxide 23 mEq/L (23-29); Chloride 107 mEq/L (98-107); Glucose 103 mg/dL (70-105); Osmolality,Calculated 291 (280-300); Potassium 3.5 mEq/L (3.5-5.1); Sodium 140 mEq/L (136-145); eGFR For Non-African Americans > 60 (> 60)
[2018-07-15 17:50] LABS: Troponin I < 0.03 ng/mL (< 0.04)
[2018-07-15] MEDS ORDERED: Levofloxacin 500 MG/100 ML 500 MG/100 ML BAG IVPB ONE (18:23)
[2018-07-15] MEDS: Ipratropium/Albuterol Neb 3 ML IH SCH (20:25)
[2018-07-15] MEDS ORDERED: Naloxone 0.4 MG/ML INJ IVP PRN (21:48)
--- NOTE | 2018-07-15 21:53 | Internal Med History&Physical ---
Date of Encounter: 07/16/18 Time of Encounter: 21:30 Internal Medicine - H&P: HPI Chief complaint: COPD exacerbation Admitted From: Emergency Dept Plans for Post Hospital Care: Home History of present illness: Mr. Valenzuela is a 52 year old male Patient initially presented to the emergency room the day prior to his admission for similar complaints but ultimately declined admission due to having to take care of some tasks at home. Yesterday he was provided with breathing treatments and steroids, but despite this he had progressively worsening symptoms and decided to come back to the emergency room today for further evaluation. His main concerns are shortness of breath he attributes to his history of asthma is also had some chest pain and wheeziness. He has had this in the past, requiring admission. He is a pack per day smoker of cigarettes. He does have a home breathing treatments, but they were not helping. In the emergency room patient's CBC and BMP were repeated, and were within normal limits. His troponins remain undetectable. Chest x-ray was performed yesterday and not repeated, but was negative for consolidation. He was given breathing treatments, steroids and started on antibiotics. He was admitted to the medical floor for further management. Upon my assessment, patient states his breathing has improved since arrival. He requested nicotine patch. He denies diarrhea and constipation as well as abdominal pain. His chest pain he attributes mainly to his shortness of breath. Past Med Surg Social Fam HX - Past Medical History Medical history: asthma, GERD, hypertension Additional medical history: pinched sciatica nerve Psychiatric history: bipolar, depression - Past Surgical History Surgical History: herniorrhaphy, other Additional surgical history: nasal reconstruction, colonoscopy-hyperplastic po lyps - Social History Smoking Status: Current every day smoker Smokeless Tobacco Status: No Alcohol use: none Drug use: none - Family History Father Living Status: Hx Family Cancer: Yes (Lymphoma) Sister Hx Family Neurologic Disorders: Yes (CVA) Mother Living Status: Hx Family Cancer: Yes (Pancreatic cancer) Paternal Grandmother Living Status: Hx Family Cancer: Yes (Pancreatic cancer) Maternal Grandmother Living Status: Hx Family Cardiac Disorders: Yes (CHF) Internal Medicine - H&P: Meds Albuterol Sulfate [Ventolin Hfa] 2 puff IH Q6H PRN 04/18/18 [History] Amlodipine Besylate 5 mg PO BID 04/18/18 [History] EPINEPHrine [Epipen] 0.3 mg IM ONCE PRN 04/18/18 [History] Escitalopram [Lexapro] 10 mg PO HS 04/18/18 [History] Lisinopril 2.5 mg PO HS 04/18/18 [History] Meloxicam [Mobic] 15 mg PO DAILY 04/18/18 [History] Montelukast [Singulair] 10 mg PO DAILY 04/18/18 [History] Omeprazole [PriLOSEC] 40 mg PO DAILY 04/18/18 [History] Quetiapine Fumarate [Seroquel] 100 mg PO HS 04/18/18 [History] diazePAM [Valium] 10 mg PO BID 04/18/18 [History] Albuterol Neb [Proventil Neb] 2.5 mg IH Q4HR 07/15/18 [History] Albuterol Sulfate [Albuterol Inhaler] 4 puff IH Q4HR #1 hfa.aer.ad 07/15/18 [Rx] Gabapentin [Neurontin] 400 mg PO TID 07/15/18 [History] Allergy/AdvReac Type Severity Reaction Status Date / Time influenza virus vaccine ts Allergy Fever Verified 07/15/18 19:09 [id number] (36 mos,up) [From Fluarix] Pneumococcal Vaccine Allergy Fever Verified 07/15/18 19:09 venom-honey bee Allergy Swelling Verified 07/15/18 15:17 [bee venom (honey bee)] of Lip/Tongue/Throat All Systems PM: A 10-system review of systems was performed and is negative for pertinent findings except as documented above in the HPI. - Constitutional Vitals: Temp Pulse Resp BP Pulse Ox 97.4 F L 74 19 150/70 98 07/15/18 20:33 07/15/18 20:33 07/15/18 20:33 07/15/18 20:33 07/15/18 20:33 General appearance: Present: cooperative, A&O X 3, pleasant, no acute distress, answers questions appropriately Exam: As above - Head Head exam: Present: normal inspection - Eye Eye exam: Present: EOMI, normal appearance - Neck Neck exam general surgery: Present: full ROM - Respiratory Respiratory exam: Present: decreased breath sounds, wheezes. Absent: chest wall tenderness, CTAB, rales, respiratory distress, rhonchi - Cardiovascular Cardiovascular exam: Present: RRR. Absent: diastolic murmur, systolic murmur - GI/Abdominal GI/Abdominal exam: Present: normal bowel sounds, soft. Absent: tenderness - Extremities Exam Extremities exam: Present: warm, radial pulses palpable and symmetrical. Absent: calf tenderness, pedal edema, tenderness - Neurological Exam Neurological exam: Present: no focal deficits, strengths equal and symetr throughout. Absent: motor sensory deficit, facial droop, speech deficit - Skin Skin exam: Present: dry, normal color, warm Internal Med - H&P Results - Labs CBC & Chem 7: 07/16/18 05:13 07/16/18 05:13 Labs: Short CBC 07/15/18 Range/Units 17:16 WBC 10.3 (4.3-11.1) K/mcL Hgb 15.4 (12.9-16.9) g/dL Hct 45.7 (37.5-50.1) % Plt Count 201 (140-400) K/mcL Neutrophils # 7.1 (1.6-8.9) K/mcL BMP 07/15/18 17:16 Sodium 140 Potassium 3.5 Chloride 107 Carbon Dioxide 23 BUN 14 Creatinine 0.77 Glucose 103 Calcium 9.5 Cardiac Enzymes 07/15/18 Range/Units 17:16 Troponin I < 0.03 (< 0.04) ng/mL - Assessment and plan (1) COPD exacerbation Current Visit: Yes Status: Acute Assessment and plan: Patient presents with shortness of breath, history of smoking. Breathing treatments in the emergency room improved his symptoms however. Continue breathing treatments every 4 hours Continue steroid IV Continue antibiotics Continue oxygen supplementation as needed (2) Wheezing on expiration Current Visit: No Status: Acute Assessment and plan: Secondary to COPD exacerbation Plan as above (3) Shortness of breath Current Visit: No Status: Acute Assessment and plan: Secondary to COPD exacerbation Continue breathing treatments (4) Nicotine dependence Current Visit: No Status: Chronic Assessment and plan: Nicotine patch Qualifiers: Nicotine product type: cigarettes Substance use status: uncomplicated Qualified Code(s): F17.210 - Nicotine dependence, cigarettes, uncomplicated (5) DVT prophylaxis Current Visit: No Status: Acute Assessment and plan: Subcutaneous heparin - Time Spent With Patient Total time spent is greater than 50% in coordination of care (as documented) at patient's floor/unit and/or counseling patient: Greater than 35 minutes
[2018-07-16] MEDS: Ipratropium/Albuterol Neb 3 ML IH SCH ×6 (00:21→20:21)
[2018-07-16] MEDS: Nicotine 21 MG PATCH.TD24 TD SCH ×2 (01:29→08:25)
[2018-07-16] MEDS: MethylPREDNISolone 40 MG/ML VIAL IVP SCH ×2 (01:29→08:25)
[2018-07-16] MEDS: *HR* Heparin 5,000 UNIT/ML VIAL SQ SCH ×2 (04:55→17:02)
[2018-07-16 05:28] LABS: Basophils % 0.1 %; Hematocrit 44.9 % (37.5-50.1); Hemoglobin 15.2 g/dL (12.9-16.9); Immature Granulocytes % 0.4 % (0-4); Lymphocytes # 0.7 K/mcL (0.6-4.6); Lymphocytes % 8.8 %; Mean Corpuscular HGB Conc 33.9 g/dL (31.6-35.5); Mean Corpuscular Volume 94.5 fL (83.0-100.0); Mean Platelet Volume 9.1 fL (9.4-12.4); Monocytes # 0.5 K/mcL (0.0-1.3); Monocytes % 6.2 %; Platelet Count 210 K/mcL (140-400); Red Blood Count 4.75 M/mcL (4.19-5.50); Red Cell Distribution Width 12.6 % (11.5-14.5); Segmented Neutrophils % 84.5 %
[2018-07-16 06:07] LABS: BUN/Creatinine Ratio 22 (6-26); Blood Urea Nitrogen 17 mg/dL (6-20); Calcium 9.9 mg/dL (8.6-10.3); Carbon Dioxide 21 mEq/L (23-29); Chloride 108 mEq/L (98-107); Glucose 168 mg/dL (70-105); Osmolality,Calculated 289 (280-300); Potassium 4.6 mEq/L (3.5-5.1); Sodium 137 mEq/L (136-145); eGFR For Non-African Americans > 60 (> 60)
[2018-07-16] MEDS ORDERED: *HR* EPINEPHrine 1 MG/ML AMPUL IM PRN (10:25)
[2018-07-16] MEDS ORDERED: NON-FORMULARY MEDICATION 1 EACH EACH (Lisinopril [Lisinopril] 2.5 MG) PO SCH (10:30)
[2018-07-16] MEDS: diazePAM 10 MG TABLET PO SCH ×2 (13:25→21:14)
[2018-07-16] MEDS: Gabapentin 400 MG CAPSULE PO SCH ×2 (13:25→21:13)
[2018-07-16] MEDS: amLODIPine 5 MG TABLET PO SCH ×2 (13:25→21:13)
--- NOTE | 2018-07-16 16:42 | Electrocardiograph Report ---
[address] [address] Test Date: 2018-07-15 Pat Name: Miguel Valenzuela Department: 104 Room: 2A Gender: M Wireless Sales Expert: : 1965 Requested By: Ang Hurtado Order Number: [id number] Reading MD: Indira Enrique Measurements Intervals [place] Rate: 80 P: 67 W[place]: 156 QRS: 50 QRSD: 96 T: 54 QT: 372 QTc: 408 Interpretive Statements SINUS RHYTHM Electronically Signed On 07-16-2018 16:40:46 EST by Indira Enrique
[2018-07-16] MEDS ORDERED: levoFLOXacin 500 MG TABLET PO SCH (18:00)
[2018-07-16] MEDS ORDERED: Levofloxacin 500 MG/100 ML 500 MG/100 ML BAG IVPB SCH (18:00)
[2018-07-16 19:47] LABS: Adenovirus Not Detected (Not Detect); Bordetella Pertussis Not Detected (Not Detect); Chlamydophila pneumoniae Not Detected (Not Detect); Coronavirus 229E Not Detected (Not Detect); Coronavirus HKU1 Not Detected (Not Detect); Coronavirus NL63 Not Detected (Not Detect); Coronavirus OC43 Not Detected (Not Detect); Human Metapneumovirus Not Detected (Not Detect); Human Rhinovirus/Enterovirus Not Detected (Not Detect); Influenza A Subtype 2009 H1 Not Detected (Not Detect); Influenza A Untypeable Not Detected (Not Detect); Influenza B Not Detected (Not Detect); Mycoplasma pneumoniae Not Detected (Not Detect); Parainfluenza Virus 1 Not Detected (Not Detect); Parainfluenza Virus 2 DETECTED (Not Detect); Parainfluenza Virus 3 Not Detected (Not Detect); Parainfluenza Virus 4 Not Detected (Not Detect); Respiratory Syncytial Virus Not Detected (Not Detect)
[2018-07-16] MEDS: Doxycycline 100 MG CAPSULE PO SCH (21:13)
--- NOTE | 2018-07-16 23:12 | Internal Med Progress Note ---
Hospitalist Progress Note - Encounter Date of Encounter: 07/16/18 Time of Encounter: 19:00 - Subjective Interval History: SUBJECTIVE: The patient feels better. His breathing is not labored anymore. He continues to have mild/moderate cough; occasionally with wheezing. Denies chest pain. Denies abdominal pain, nausea and vomiting. He has normal urination. OBJECTIVE: Skin: Free of rash and discoloration. ENMT: Oral/pharyngeal mucosa is normal in appearance. Eyes: Sclera is white. There is no discharge from eyes. Respiratory: Normal breath sounds; no crackles or wheezes. CV: Heart is regular; no gallop or murmur. GI: Abdomen is soft and not tender. There is no palpable mass or visceromegaly. Neuro: There is no focal deficits. ADDITIONAL DATA: CBC is normal. BMP is normal. ASSESSMENT AND PLAN: COPD exacerbation. Acute respiratory failure with hypoxia (pulse ox is 91% on room air). We will keep him on doxycycline. We will switch him from IV Solu- Medrol to oral prednisone. He gets nebulizer treatments with DuoNeb every 4 hours. The patient quit smoking a few days ago (after the admission to the hospital). Hypertension. We will restart he is to lisinopril and amlodipine. GERD. He will be on Protonix. Left sciatica/chronic right shoulder pain. Will continue Mobic and Neurontin. Bipolar disorder. He is on Seroquel, Lexapro and Neurontin. DISPOSITION: He would likely be discharged either tomorrow or after tomorrow. - Exam Vitals: Temp Pulse Resp BP Pulse Ox 98.0 F 83 16 143/81 91 07/16/18 19:40 07/16/18 19:40 07/16/18 20:21 07/16/18 19:40 07/16/18 20:21 Exam: xx - Time Spent with Patient Total time spent is greater than 50% in coordination of care (as documented) at patient's floor/unit and/or counseling patient: 25 - 35 minutes Plan of Care Discussed with: patient Internal Medicine: Result - Labs CBC & Chem 7: 07/16/18 05:13 07/16/18 05:13 Labs: Short CBC 07/16/18 Range/Units 05:13 WBC 8.3 (4.3-11.1) K/mcL Hgb 15.2 (12.9-16.9) g/dL Hct 44.9 (37.5-50.1) % Plt Count 210 (140-400) K/mcL Neutrophils # 7.0 (1.6-8.9) K/mcL BMP 07/16/18 05:13 Sodium 137 Potassium 4.6 D Chloride 108 H Carbon Dioxide 21 L BUN 17 Creatinine 0.78 Glucose 168 H Calcium 9.9 Consult Discharge Plan - Plan Referrals: Jaja Krishna, SECRETARY SPECIALIST [Primary Care Provider] -
[2018-07-17] MEDS: Ipratropium/Albuterol Neb 3 ML IH SCH ×7 (00:07→23:13)
[2018-07-17] MEDS: *HR* Heparin 5,000 UNIT/ML VIAL SQ SCH ×2 (05:17→17:26)
[2018-07-17] MEDS: amLODIPine 5 MG TABLET PO SCH ×2 (08:52→20:18)
[2018-07-17] MEDS: predniSONE 20 MG TABLET PO SCH (08:52)
[2018-07-17] MEDS: Nicotine 21 MG PATCH.TD24 TD SCH (08:52)
[2018-07-17] MEDS: Doxycycline 100 MG CAPSULE PO SCH ×2 (08:53→20:17)
[2018-07-17] MEDS: diazePAM 10 MG TABLET PO SCH ×2 (08:53→20:18)
[2018-07-17] MEDS: Gabapentin 400 MG CAPSULE PO SCH ×3 (08:53→20:18)
--- NOTE | 2018-07-17 22:58 | Internal Med Progress Note ---
Hospitalist Progress Note - Encounter Date of Encounter: 07/17/18 Time of Encounter: 15:00 - Subjective Interval History: SUBJECTIVE: His breathing is getting progressively better. He does have off and on cough; started bringing up thick yellowish/greenish sputum. His wheezing basically subsided. Denies chest pain. Denies abdominal pain, nausea and vomiting. She makes fair amounts of urine. OBJECTIVE: Skin: Free of rash and discoloration. ENMT: Oral/pharyngeal mucosa is normal in appearance. Eyes: Sclera is white. There is no discharge from eyes. Respiratory: Normal breath sounds. I can hear bilateral rhonchi but no wheezes. CV: Heart is regular; no gallop or murmur. GI: Abdomen is soft and not tender. There is no palpable mass or visceromegaly. Neuro: There is no focal deficits. ADDITIONAL DATA: Blood tests from yesterday shows normal CBC and BMP. ASSESSMENT AND PLAN: COPD exacerbation. Acute respiratory failure with hypoxia. Today's resting pulse ox on room air is 88%. We will keep him on doxycycline. He is on by mouth prednisone. He gets nebulizer treatments with DuoNeb every 4 hours. The patient quit smoking a few days ago (after the admission to the hospital). Hypertension. We will restart he is to lisinopril and amlodipine. GERD. He will be on Protonix. Left sciatica/chronic right shoulder pain. Will continue Mobic and Neurontin. Bipolar disorder. He is on Seroquel, Lexapro and Neurontin. DISPOSITION: I anticipate his discharge tomorrow. - Exam Vitals: Temp Pulse Resp BP Pulse Ox 97.4 F L 75 18 131/78 94 07/17/18 20:48 07/17/18 20:48 07/17/18 20:48 07/17/18 20:48 07/17/18 20:48 Exam: xx - Time Spent with Patient Total time spent is greater than 50% in coordination of care (as documented) at patient's floor/unit and/or counseling patient: 25 - 35 minutes Plan of Care Discussed with: patient Internal Medicine: Result - Labs CBC & Chem 7: 07/16/18 05:13 07/16/18 05:13 Consult Discharge Plan - Plan Referrals: Jaja Krishna, CANARY BREEDER [Primary Care Provider] -
[2018-07-18] MEDS: Ipratropium/Albuterol Neb 3 ML IH SCH ×3 (03:38→11:16)
[2018-07-18] MEDS: *HR* Heparin 5,000 UNIT/ML VIAL SQ SCH (05:12)
[2018-07-18 07:16] VITALS: BP 151/85
--- NOTE | 2018-07-18 08:55 | Discharge Summary ---
Date of Encounter: 07/18/18 Time of Encounter: 08:53 - Discharge Diagnosis (1) COPD exacerbation Priority: Primary Status: Acute (2) Acute respiratory failure with hypoxia Priority: Primary Status: Acute (3) HTN (hypertension) Priority: Secondary Status: Chronic Qualifiers: Hypertension type: essential hypertension Qualified Code(s): I10 - Essential (primary) hypertension (4) GERD (gastroesophageal reflux disease) Priority: Secondary Status: Chronic Qualifiers: Esophagitis presence: esophagitis presence not specified Qualified Code(s): K21.9 - Gastro-esophageal reflux disease without esophagitis Hospital course: HOSPITAL COURSE: The patient is a 52-year-old male. He is a heavy tobacco user. We admitted him with difficulty breathing, coughing and wheezing. Diagnosis of COPD exacerbation was made. He was started on IV Solu-Medrol, IV Levaquin and nebulizer treatments with DuoNeb. After a short period of time we substituted IV Solu-Medrol with oral prednisone and IV Levaquin with doxycycline. The patient was acute hypoxic respiratory failure admission. He did not require oxygen on the day of discharge. CONDITION AT DISCHARGE: He feels good. He does have mild cough but not wheezing. Denies chest pain. Denies abdominal pain, nausea and vomiting. He is able to walk slo-pace without supplemental oxygen. Skin: Free of rash and discoloration. Respiratory: Normal breath sounds with no crackles and wheezes bilaterally. CV: Heart is regular with no gallop or murmur. GI: Abdomen is flat and soft with no palpable mass or visceromegaly. Neuro exam: There is no focal deficits. Normal speech, swallowing and gait. SEE DISCHARGE ORDERS/MEDICATIONS.. Discharge discussed with: patient Time spent discussing smoking cessation with patient: more than 10 minutes - Time Spent with Patient Total time spent providing and/or coordinating discharge services: Greater than 30 minutes (40 minutes..) - Discharge Medications Prescriptions: Doxycycline 100 mg PO BID #10 capsule Nicotine Patch [Nicoderm] 21 mg TD DAILY #30 patch.td24 predniSONE [PredniSONE] 20 mg PO DAILY #5 tablet Home Medications: Amlodipine Besylate 5 mg PO BID 04/18/18 [History] EPINEPHrine [Epipen] 0.3 mg IM ONCE PRN 04/18/18 [History] Escitalopram [Lexapro] 10 mg PO HS 04/18/18 [History] Lisinopril 2.5 mg PO HS 04/18/18 [History] Meloxicam [Mobic] 15 mg PO DAILY 04/18/18 [History] Montelukast [Singulair] 10 mg PO DAILY 04/18/18 [History] Omeprazole [PriLOSEC] 40 mg PO DAILY 04/18/18 [History] Quetiapine Fumarate [Seroquel] 100 mg PO HS 04/18/18 [History] diazePAM [Valium] 10 mg PO BID 04/18/18 [History] Gabapentin [Neurontin] 400 mg PO TID 07/15/18 [History] Albuterol Neb [Proventil Neb] 2.5 mg IH Q4HR PRN #0 07/18/18 [Rx] Doxycycline 100 mg PO BID #10 capsule 07/18/18 [Rx] Nicotine Patch [Nicoderm] 21 mg TD DAILY #30 patch.td24 07/18/18 [Rx] predniSONE [PredniSONE] 20 mg PO DAILY #5 tablet 07/18/18 [Rx] Allergies/Adverse Reactions: Allergy/AdvReac Type Severity Reaction Status Date / Time venom-honey bee Allergy Swelling Verified 07/15/18 15:17 [bee venom (honey bee)] of Lip/Tongue/Throat influenza virus vaccine ts AdvReac Fever Verified 07/16/18 07:50 [id number] (36 mos,up) [From Fluarix] Pneumococcal Vaccine AdvReac Fever Verified 07/16/18 07:50 Date of admission: 07/15/18 18:45 Primary care physician: Jaja Krishna CNP Discharging clinician: Samuel Roca Anticipated date of discharge: 07/18/18 - Constitutional Vitals: Temp Pulse Resp BP Pulse Ox 98.1 F 62 18 151/85 91 07/18/18 07:15 07/18/18 07:15 07/18/18 07:30 07/18/18 07:15 07/18/18 07:30 General appearance: Present: cooperative, A&O X 3, pleasant, no acute distress, answers questions appropriately Exam: xx - Patient Status Disposition: Home, Self-Care Condition: Fair Overall status at discharge: patient is progressing back to baseline - Discharge Instructions Follow Up With: Jaja Krishna CNP [Primary Care Provider] - 11/16/18 9:00 am (Please follow up as schedule...) Additional Instructions: THE PT WAS ADVISED TO QUIT USING TABACCO.. - Diet and Activity Activity: resume usual activities as tolerated Diet: low fat, low cholesterol - VTE Deep Vein Thrombosis/Pulmonary Embolism Present on Admission: No
[2018-07-18] MEDS: Nicotine 21 MG PATCH.TD24 TD SCH (09:20)
[2018-07-18] MEDS: Gabapentin 400 MG CAPSULE PO SCH (09:21)
[2018-07-18] MEDS: amLODIPine 5 MG TABLET PO SCH (09:21)
[2018-07-18] MEDS: diazePAM 10 MG TABLET PO SCH (09:22)
[2018-07-18] MEDS: Doxycycline 100 MG CAPSULE PO SCH (09:22)
[2018-07-18] MEDS: predniSONE 20 MG TABLET PO SCH (09:22)
== END 2018-07-18 11:33 | disposition home or self-care (01) ==
LOC: EMEROOARM 15:11 → 2ANU 15:11 → SUATTDRO 18:45 → 2ANU 20:36
PROVIDERS: ADMIT Internal Medicine; ATTEND Internal Medicine

== ENCOUNTER 2019-06-19 19:22 | Inpatient (IN) ==
[2019-06-19] MEDS ORDERED: Ipratropium/Albuterol Neb 3 ML IH ONE (19:32)
[2019-06-19] MEDS ORDERED: methylPREDNISolone 125 MG/2 ML VIAL IVP ONE (20:01)
[2019-06-19] MEDS ORDERED: Albuterol 2.5 MG/3 ML NEBULIZER IH ONE (20:37)
[2019-06-19 20:44] LABS: Basophils # 0.1 K/mcL (0.0-0.2); Basophils % 0.5 %; Eosinophils # 0.4 K/mcL (0.0-0.6); Eosinophils % 1.8 %; Hematocrit 49.9 % (37.5-50.1); Immature Granulocytes % 0.5 % (0-4); Lymphocytes # 1.6 K/mcL (0.6-4.6); Lymphocytes % 7.7 %; Mean Corpuscular HGB Conc 34.1 g/dL (31.6-35.5); Mean Corpuscular Hemoglobin 32.9 pg (28.0-33.3); Mean Corpuscular Volume 96.5 fL (83.0-100.0); Mean Platelet Volume 9.3 fL (9.4-12.4); Monocytes # 1.6 K/mcL (0.0-1.3); Monocytes % 7.5 %; Neutrophils # 17.2 K/mcL (1.6-8.9); Platelet Count 224 K/mcL (140-400); Red Blood Count 5.17 M/mcL (4.19-5.50); Red Cell Distribution Width 12.1 % (11.5-14.5); White Blood Count 20.9 K/mcL (4.3-11.1)
[2019-06-19 20:59] LABS: BUN/Creatinine Ratio 15 (6-26); Blood Urea Nitrogen 11 mg/dL (6-20); Carbon Dioxide 22 mEq/L (23-29); Chloride 106 mEq/L (98-107); Glucose 124 mg/dL (70-105); Osmolality,Calculated 289 (280-300); Potassium 3.7 mEq/L (3.5-5.1); Sodium 139 mEq/L (136-145); eGFR For African Americans > 60 (> 60); eGFR For Non-African Americans > 60 (> 60)
[2019-06-19 21:00] LABS: Troponin I < 0.03 ng/mL (< 0.04)
[2019-06-19] MEDS ORDERED: 0.9 % Sodium Chloride 1,000 ML IVC ONE (21:13)
[2019-06-19] MEDS ORDERED: Azithromycin 500 MG in 0.9 % Sodium Chloride 250 ML IVPB ONE (21:14)
[2019-06-19] MEDS ORDERED: Acetaminophen 325 MG TABLET PO PRN (23:41)
[2019-06-19] MEDS ORDERED: Ringers Solution, Lactated 1,000 ML IVC SCH (23:45)
[2019-06-19] MEDS ORDERED: Gabapentin 400 MG CAPSULE PO ONE (23:54)
[2019-06-20] MEDS: GuaiFENesin Liq 200 MG/10 ML UDC PO PRN (00:30)
[2019-06-20] MEDS: Azithromycin 500 MG in D5% in Water 250 ML IVPB SCH ×2 (01:11→10:32)
[2019-06-20] MEDS: Ipratropium/Albuterol Neb 3 ML IH SCH ×7 (02:07→23:09)
[2019-06-20 04:02] LABS: Basophils % 0.2 %; Eosinophils % 0.1 %; Hematocrit 44.3 % (37.5-50.1); Immature Granulocytes % 0.4 % (0-4); Lymphocytes # 0.5 K/mcL (0.6-4.6); Lymphocytes % 3.6 %; Mean Corpuscular HGB Conc 33.9 g/dL (31.6-35.5); Mean Corpuscular Hemoglobin 33.1 pg (28.0-33.3); Mean Corpuscular Volume 97.8 fL (83.0-100.0); Mean Platelet Volume 9.4 fL (9.4-12.4); Monocytes # 0.2 K/mcL (0.0-1.3); Monocytes % 1.1 %; Neutrophils # 12.5 K/mcL (1.6-8.9); Platelet Count 221 K/mcL (140-400); Red Blood Count 4.53 M/mcL (4.19-5.50); Red Cell Distribution Width 12.3 % (11.5-14.5); Segmented Neutrophils % 94.6 %; White Blood Count 13.2 K/mcL (4.3-11.1)
[2019-06-20 04:03] LABS: VBG HCO3 24 mEq/L (21-27); VBG PCO2 40 mmHg (41-51); VBG PH 7.38 pH Units (7.32-7.42); VBG PO2 91 mmHg (25-50)
[2019-06-20] MEDS: *HR* Heparin 5,000 UNIT/ML VIAL SQ SCH ×2 (05:58→17:37)
[2019-06-20] MEDS: amLODIPine 5 MG TABLET PO SCH (10:31)
[2019-06-20] MEDS: Gabapentin 400 MG CAPSULE PO SCH ×3 (10:32→19:58)
[2019-06-20] MEDS: MethylPREDNISolone 40 MG/ML VIAL IVP SCH ×2 (10:33→17:37)
[2019-06-20] MEDS: cefTRIAXone 1,000 MG in Water for inj. (sterile) 10 ML IVP SCH (17:37)
[2019-06-20] MEDS: 0.9 % Sodium Chloride 1,000 ML IVC SCH (17:38)
[2019-06-21] MEDS: 0.9 % Sodium Chloride 1,000 ML IVC SCH ×3 (00:53→19:29)
[2019-06-21] MEDS: MethylPREDNISolone 40 MG/ML VIAL IVP SCH ×4 (00:53→23:38)
[2019-06-21] MEDS: Ipratropium/Albuterol Neb 3 ML IH SCH ×6 (04:23→23:53)
[2019-06-21] MEDS: *HR* Heparin 5,000 UNIT/ML VIAL SQ SCH ×2 (05:03→18:11)
[2019-06-21 05:33] LABS: Basophils % 0.2 %; Hematocrit 45.5 % (37.5-50.1); Hemoglobin 15.6 g/dL (12.9-16.9); Immature Granulocytes % 0.9 % (0-4); Lymphocytes # 1.2 K/mcL (0.6-4.6); Lymphocytes % 4.8 %; Mean Corpuscular HGB Conc 34.3 g/dL (31.6-35.5); Mean Corpuscular Hemoglobin 32.8 pg (28.0-33.3); Mean Corpuscular Volume 95.6 fL (83.0-100.0); Mean Platelet Volume 9.2 fL (9.4-12.4); Monocytes # 1.1 K/mcL (0.0-1.3); Monocytes % 4.5 %; Platelet Count 271 K/mcL (140-400); Red Blood Count 4.76 M/mcL (4.19-5.50); Red Cell Distribution Width 12.3 % (11.5-14.5); Segmented Neutrophils % 89.6 %
[2019-06-21 05:35] LABS: Basophils # 0.1 K/mcL (0.0-0.2); White Blood Count 24.6 K/mcL (4.3-11.1)
[2019-06-21 05:53] LABS: BUN/Creatinine Ratio 20 (6-26); Blood Urea Nitrogen 17 mg/dL (6-20); Calcium 10.3 mg/dL (8.6-10.3); Carbon Dioxide 25 mEq/L (23-29); Chloride 103 mEq/L (98-107); Glucose 151 mg/dL (70-105); Osmolality,Calculated 292 (280-300); Potassium 4.9 mEq/L (3.5-5.1); Sodium 139 mEq/L (136-145); eGFR For African Americans > 60 (> 60); eGFR For Non-African Americans > 60 (> 60)
[2019-06-21 06:18] LABS: Platelet Estimate Normal (Normal)
[2019-06-21] MEDS: amLODIPine 5 MG TABLET PO SCH (09:24)
[2019-06-21] MEDS: Gabapentin 400 MG CAPSULE PO SCH ×3 (09:24→20:58)
[2019-06-21] MEDS: cefTRIAXone 1,000 MG in Water for inj. (sterile) 10 ML IVP SCH (09:25)
[2019-06-21] MEDS: Azithromycin 500 MG in D5% in Water 250 ML IVPB SCH (09:25)
[2019-06-21] MEDS: Budesonide/Formoterol 160/4.5 1 PUFF INH IH SCH ×2 (12:51→20:17)
[2019-06-21 14:30] LABS: Adenovirus Not Detected (Not Detect); Bordetella Pertussis Not Detected (Not Detect); Chlamydophila pneumoniae Not Detected (Not Detect); Coronavirus 229E Not Detected (Not Detect); Coronavirus HKU1 Not Detected (Not Detect); Coronavirus NL63 Not Detected (Not Detect); Coronavirus OC43 Not Detected (Not Detect); Human Metapneumovirus Not Detected (Not Detect); Human Rhinovirus/Enterovirus DETECTED (Not Detect); Influenza A Subtype 2009 H1 Not Detected (Not Detect); Influenza A Untypeable Not Detected (Not Detect); Influenza B Not Detected (Not Detect); Mycoplasma pneumoniae Not Detected (Not Detect); Parainfluenza Virus 1 Not Detected (Not Detect); Parainfluenza Virus 2 Not Detected (Not Detect); Parainfluenza Virus 3 Not Detected (Not Detect); Parainfluenza Virus 4 Not Detected (Not Detect); Respiratory Syncytial Virus Not Detected (Not Detect)
[2019-06-22 02:38] LABS: Basophils # 0.1 K/mcL (0.0-0.2); Basophils % 0.3 %; Hematocrit 44.7 % (37.5-50.1); Immature Granulocytes % 1.4 % (0-4); Lymphocytes # 1.4 K/mcL (0.6-4.6); Lymphocytes % 5.9 %; Mean Corpuscular HGB Conc 33.6 g/dL (31.6-35.5); Mean Corpuscular Hemoglobin 32.5 pg (28.0-33.3); Mean Platelet Volume 9.1 fL (9.4-12.4); Monocytes # 1.1 K/mcL (0.0-1.3); Monocytes % 4.9 %; Neutrophils # 20.1 K/mcL (1.6-8.9); Platelet Count 260 K/mcL (140-400); Red Blood Count 4.61 M/mcL (4.19-5.50); Red Cell Distribution Width 12.4 % (11.5-14.5); Segmented Neutrophils % 87.5 %; White Blood Count 22.9 K/mcL (4.3-11.1)
[2019-06-22 02:58] LABS: BUN/Creatinine Ratio 22 (6-26); Blood Urea Nitrogen 18 mg/dL (6-20); Calcium 9.8 mg/dL (8.6-10.3); Carbon Dioxide 26 mEq/L (23-29); Chloride 103 mEq/L (98-107); Glucose 137 mg/dL (70-105); Osmolality,Calculated 282 (280-300); Potassium 4.3 mEq/L (3.5-5.1); Sodium 134 mEq/L (136-145); eGFR For African Americans > 60 (> 60); eGFR For Non-African Americans > 60 (> 60)
[2019-06-22] MEDS: Ipratropium/Albuterol Neb 3 ML IH SCH ×5 (04:00→20:21)
[2019-06-22] MEDS: 0.9 % Sodium Chloride 1,000 ML IVC SCH ×3 (04:34→16:20)
[2019-06-22] MEDS: *HR* Heparin 5,000 UNIT/ML VIAL SQ SCH ×2 (04:36→17:20)
[2019-06-22] MEDS: cefTRIAXone 1,000 MG in Water for inj. (sterile) 10 ML IVP SCH (07:43)
[2019-06-22] MEDS: Azithromycin 500 MG in D5% in Water 250 ML IVPB SCH (07:44)
[2019-06-22] MEDS: amLODIPine 5 MG TABLET PO SCH (07:44)
[2019-06-22] MEDS: Gabapentin 400 MG CAPSULE PO SCH ×3 (07:44→21:07)
[2019-06-22] MEDS: MethylPREDNISolone 40 MG/ML VIAL IVP SCH ×3 (07:45→23:49)
[2019-06-22] MEDS: Budesonide/Formoterol 160/4.5 1 PUFF INH IH SCH ×2 (07:53→20:21)
[2019-06-22] MEDS: GuaiFENesin Liq 200 MG/10 ML UDC PO PRN ×2 (15:36→21:07)
[2019-06-22] MEDS ORDERED: 0.9 % Sodium Chloride 1,000 ML IVC SCH (15:43)
[2019-06-23] MEDS: Ipratropium/Albuterol Neb 3 ML IH SCH ×3 (00:23→07:19)
[2019-06-23 04:33] LABS: Basophils # 0.1 K/mcL (0.0-0.2); Basophils % 0.6 %; Hematocrit 46.7 % (37.5-50.1); Hemoglobin 15.6 g/dL (12.9-16.9); Immature Granulocytes % 3.4 % (0-4); Lymphocytes # 1.8 K/mcL (0.6-4.6); Lymphocytes % 7.7 %; Mean Corpuscular HGB Conc 33.4 g/dL (31.6-35.5); Mean Corpuscular Hemoglobin 32.8 pg (28.0-33.3); Mean Corpuscular Volume 98.1 fL (83.0-100.0); Mean Platelet Volume 9.1 fL (9.4-12.4); Monocytes # 1.3 K/mcL (0.0-1.3); Monocytes % 5.5 %; Nucleated Red Blood Cells 0.1 /100 WBC (0); Platelet Count 266 K/mcL (140-400); Red Blood Count 4.76 M/mcL (4.19-5.50); Red Cell Distribution Width 12.1 % (11.5-14.5); Segmented Neutrophils % 82.8 %; White Blood Count 22.9 K/mcL (4.3-11.1)
[2019-06-23 04:43] LABS: BUN/Creatinine Ratio 23 (6-26); Blood Urea Nitrogen 19 mg/dL (6-20); Calcium 9.7 mg/dL (8.6-10.3); Carbon Dioxide 27 mEq/L (23-29); Chloride 101 mEq/L (98-107); Glucose 134 mg/dL (70-105); Osmolality,Calculated 288 (280-300); Potassium 4.6 mEq/L (3.5-5.1); Sodium 137 mEq/L (136-145); eGFR For African Americans > 60 (> 60); eGFR For Non-African Americans > 60 (> 60)
[2019-06-23] MEDS: *HR* Heparin 5,000 UNIT/ML VIAL SQ SCH (05:51)
[2019-06-23] MEDS: Budesonide/Formoterol 160/4.5 1 PUFF INH IH SCH (07:20)
[2019-06-23 07:34] VITALS: BP 156/75
[2019-06-23] MEDS: Gabapentin 400 MG CAPSULE PO SCH (08:05)
[2019-06-23] MEDS: amLODIPine 5 MG TABLET PO SCH (08:05)
[2019-06-23] MEDS: Azithromycin 500 MG in D5% in Water 250 ML IVPB SCH (08:08)
[2019-06-23] MEDS: MethylPREDNISolone 40 MG/ML VIAL IVP SCH (08:11)
[2019-06-23] MEDS: cefTRIAXone 1,000 MG in Water for inj. (sterile) 10 ML IVP SCH (08:11)
[2019-06-23] MEDS ORDERED: Furosemide 20 MG TABLET PO SCH (09:00)
== END 2019-06-23 11:12 | disposition home or self-care (01) | DRG 190 ==
LOC: 3BNU 19:22 → EMEROOARM 19:22 → SUATTDRO 22:55 → 3BNU 23:19
PROVIDERS: ADMIT Internal Medicine; ATTEND Family Medicine

== ENCOUNTER 2019-06-25 12:07 | Observation (INO) ==
[2019-06-25] MEDS ORDERED: methylPREDNISolone 125 MG/2 ML VIAL IVP ONE (12:37)
[2019-06-25] MEDS ORDERED: Isovue-370 500 ML BOTTLE IVP ONE (12:37)
[2019-06-25] MEDS ORDERED: Ipratropium/Albuterol Neb 3 ML IH ONE (12:37)
[2019-06-25] MEDS ORDERED: 0.9 % Sodium Chloride 1,000 ML IVC ONE (12:37)
[2019-06-25 12:54] LABS: Basophils % 0.1 %; Eosinophils # 0.7 K/mcL (0.0-0.6); Eosinophils % 3.5 %; Hematocrit 48.8 % (37.5-50.1); Hemoglobin 16.7 g/dL (12.9-16.9); Immature Granulocytes % 4.8 % (0-4); Lymphocytes # 3.4 K/mcL (0.6-4.6); Lymphocytes % 17.2 %; Mean Corpuscular HGB Conc 34.2 g/dL (31.6-35.5); Mean Corpuscular Hemoglobin 32.4 pg (28.0-33.3); Mean Corpuscular Volume 94.8 fL (83.0-100.0); Mean Platelet Volume 8.8 fL (9.4-12.4); Monocytes # 1.8 K/mcL (0.0-1.3); Neutrophils # 13.1 K/mcL (1.6-8.9); Platelet Count 256 K/mcL (140-400); Red Blood Count 5.15 M/mcL (4.19-5.50); Red Cell Distribution Width 12.2 % (11.5-14.5); Segmented Neutrophils % 65.4 %
[2019-06-25 13:18] LABS: BUN/Creatinine Ratio 31 (6-26); Blood Urea Nitrogen 24 mg/dL (6-20); Calcium 9.3 mg/dL (8.6-10.3); Carbon Dioxide 25 mEq/L (23-29); Chloride 100 mEq/L (98-107); Glucose 111 mg/dL (70-105); Osmolality,Calculated 287 (280-300); Sodium 136 mEq/L (136-145); Troponin I < 0.03 ng/mL (< 0.04); eGFR For African Americans > 60 (> 60); eGFR For Non-African Americans > 60 (> 60)
[2019-06-25] MEDS ORDERED: Ondansetron 4 MG/2 ML VIAL IVP PRN (16:45)
[2019-06-25] MEDS ORDERED: Naloxone 0.4 MG/ML INJ IVP PRN (16:45)
[2019-06-25] MEDS ORDERED: diazePAM 10 MG TABLET PO PRN (16:50)
[2019-06-25 18:34] LABS: ABG Base Excess 0 mEq/L (-2 to 3); ABG HCO3 23 mEq/L (21-27); ABG Oxygen Saturation 94 % (95-98); ABG PCO2 32 mmHg (35-45); ABG PH 7.47 pH Units (7.32-7.45); ABG PO2 65 mmHg (85-104); ABG TCO2 24 mEq/L (20-26)
[2019-06-25] MEDS: Ipratropium/Albuterol Neb 3 ML IH SCH (20:09)
[2019-06-25] MEDS: Budesonide/Formoterol 160/4.5 1 PUFF INH IH SCH (21:58)
[2019-06-25] MEDS: *HR* Heparin 5,000 UNIT/ML VIAL SQ SCH (22:07)
[2019-06-25] MEDS: levoFLOXacin 750 MG/150 ML 750 MG/150 ML BAG IVPB SCH (22:07)
[2019-06-25] MEDS: Gabapentin 400 MG CAPSULE PO SCH (22:08)
[2019-06-26] MEDS ORDERED: MethylPREDNISolone 40 MG/ML VIAL IVP SCH
[2019-06-26] MEDS: Ipratropium/Albuterol Neb 3 ML IH SCH ×6 (00:13→21:08)
[2019-06-26 00:52] LABS: Basophils # 0.2 K/mcL (0.0-0.2); Basophils % 0.9 %; Hematocrit 49.4 % (37.5-50.1); Hemoglobin 16.7 g/dL (12.9-16.9); Lymphocytes # 1.3 K/mcL (0.6-4.6); Lymphocytes % 6.2 %; Mean Corpuscular HGB Conc 33.8 g/dL (31.6-35.5); Mean Corpuscular Hemoglobin 32.5 pg (28.0-33.3); Mean Corpuscular Volume 96.1 fL (83.0-100.0); Mean Platelet Volume 8.9 fL (9.4-12.4); Monocytes # 1.3 K/mcL (0.0-1.3); Monocytes % 6.3 %; Neutrophils # 16.6 K/mcL (1.6-8.9); Platelet Count 268 K/mcL (140-400); Red Blood Count 5.14 M/mcL (4.19-5.50); Red Cell Distribution Width 11.9 % (11.5-14.5); Segmented Neutrophils % 82.6 %; White Blood Count 20.1 K/mcL (4.3-11.1)
[2019-06-26 01:10] LABS: BUN/Creatinine Ratio 29 (6-26); Blood Urea Nitrogen 27 mg/dL (6-20); Calcium 9.6 mg/dL (8.6-10.3); Carbon Dioxide 23 mEq/L (23-29); Chloride 100 mEq/L (98-107); Glucose 141 mg/dL (70-105); Magnesium 2.3 mg/dL (1.6-2.6); Osmolality,Calculated 285 (280-300); Phosphorous 3.8 mg/dL (2.7-4.5); Potassium 4.6 mEq/L (3.5-5.1); Sodium 134 mEq/L (136-145); eGFR For African Americans > 60 (> 60); eGFR For Non-African Americans > 60 (> 60)
[2019-06-26] MEDS: methylPREDNISolone 125 MG/2 ML VIAL IVP SCH ×2 (01:26→08:31)
[2019-06-26] MEDS: *HR* Heparin 5,000 UNIT/ML VIAL SQ SCH ×3 (05:34→19:46)
[2019-06-26] MEDS: Budesonide/Formoterol 160/4.5 1 PUFF INH IH SCH ×2 (07:52→21:08)
[2019-06-26] MEDS: Furosemide 20 MG TABLET PO SCH (08:32)
[2019-06-26] MEDS: Gabapentin 400 MG CAPSULE PO SCH ×3 (08:33→19:46)
[2019-06-26] MEDS: levoFLOXacin 750 MG/150 ML 750 MG/150 ML BAG IVPB SCH (08:33)
[2019-06-26] MEDS: MethylPREDNISolone 40 MG/ML VIAL IVP SCH ×2 (13:24→22:08)
[2019-06-26] MEDS: *HR* HYDROcodone/Acet 5/325 mg TABLET PO PRN (19:45)
[2019-06-27] MEDS: Ipratropium/Albuterol Neb 3 ML IH SCH ×4 (00:02→11:12)
[2019-06-27] MEDS: *HR* Heparin 5,000 UNIT/ML VIAL SQ SCH (05:40)
[2019-06-27 07:18] VITALS: BP 155/88
[2019-06-27] MEDS: Budesonide/Formoterol 160/4.5 1 PUFF INH IH SCH (07:49)
[2019-06-27] MEDS: levoFLOXacin 750 MG/150 ML 750 MG/150 ML BAG IVPB SCH (10:08)
[2019-06-27] MEDS: MethylPREDNISolone 40 MG/ML VIAL IVP SCH (10:10)
[2019-06-27] MEDS: Gabapentin 400 MG CAPSULE PO SCH (10:10)
[2019-06-27] MEDS: Furosemide 20 MG TABLET PO SCH (10:10)
[2019-06-27] MEDS: *HR* HYDROcodone/Acet 5/325 mg TABLET PO PRN (10:14)
== END 2019-06-27 11:30 | disposition home or self-care (01) ==
LOC: EMEROOARM 12:07 → 3BNU 12:07
PROVIDERS: ADMIT Internal Medicine; ATTEND Internal Medicine

== ENCOUNTER 2019-09-06 06:33 | Inpatient (IN) ==
[2019-09-06] MEDS ORDERED: CeFAZolin Syr 2,000MG/20 ML 2,000 MG/20 ML SYRINGE IVPB ONE (06:53)
[2019-09-06] MEDS ORDERED: Albuterol 2.5 MG/3 ML NEBULIZER IH PRN ×2 (06:53→11:07)
[2019-09-06] MEDS ORDERED: Ringers Solution, Lactated 1,000 ML IVC SCH ×2 (07:00→11:07)
[2019-09-06] MEDS ORDERED: Ethanol\\Acetic Acid\\Na Ace\\Ben 1,000 ML IRRIG.SOLN IR ONE (07:14)
[2019-09-06] MEDS ORDERED: *HR* HYDROmorphone (PF) 1 MG/ML SYRINGE IVP PRN (07:19)
[2019-09-06] MEDS ORDERED: *HR* FentaNYL (PF) 100 MCG/2 ML VIAL ONE (07:19)
[2019-09-06] MEDS ORDERED: *HR* OxyCODONE Immed Rel 5 MG TABLET PO PRN ×2 (07:19→11:07)
[2019-09-06] MEDS ORDERED: Famotidine 20 MG/2 ML VIAL IVP ONE (07:19)
[2019-09-06] MEDS ORDERED: *HR* Meperidine 25 MG/ML SYRINGE IVP PRN (07:19)
[2019-09-06] MEDS ORDERED: Ondansetron ODT 4 MG TAB.RAPDIS SL ONE (07:19)
[2019-09-06] MEDS ORDERED: *HR* FentaNYL (PF) 100 MCG/2 ML VIAL IVP PRN (07:19)
[2019-09-06] MEDS ORDERED: *HR* Midazolam HCl 2 MG/2 ML VIAL ONE (07:19)
[2019-09-06] MEDS ORDERED: Acetaminophen IV 1,000 MG/100 ML INFUS..BTL IVPB ONE (07:19)
[2019-09-06] MEDS ORDERED: *HR* Midazolam HCl 2 MG/2 ML VIAL IVP PRN (07:19)
[2019-09-06] MEDS ORDERED: *HR* Propofol 200 MG/20 ML VIAL IVP ONE (07:19)
[2019-09-06] MEDS ORDERED: *HR* Promethazine 25 MG/ML VIAL IVP PRN (07:19)
[2019-09-06] MEDS ORDERED: diazePAM 5 MG TABLET PO ONE (07:19)
[2019-09-06] MEDS ORDERED: Lidocaine -MPF 2% 2 ML VIAL ONE ×2 (07:21→07:24)
[2019-09-06] MEDS ORDERED: Ropivacaine/PF 0.5% 30 ML VIAL ONE (07:37)
[2019-09-06] MEDS ORDERED: Acetaminophen IV 1,000 MG/100 ML INFUS..BTL ONE (07:38)
[2019-09-06] MEDS ORDERED: Ondansetron 4 MG/2 ML VIAL ONE (08:44)
[2019-09-06] MEDS ORDERED: Dexamethasone 4 MG/ML VIAL ONE (08:44)
[2019-09-06] MEDS ORDERED: Albuterol 2.5 MG/3 ML NEBULIZER ONE (09:58)
[2019-09-06] MEDS ORDERED: Albuterol 2.5 MG/3 ML NEBULIZER IH ONE (10:10)
[2019-09-06 10:16] LABS: Hematocrit 42.4 % (37.5-50.1)
[2019-09-06 10:17] LABS: Hemoglobin 14.5 g/dL (12.9-16.9)
[2019-09-06] MEDS ORDERED: Sildenafil Citrate 20 MG TABLET PO PRN (11:07)
[2019-09-06] MEDS ORDERED: *HR* OxyCODONE/APAP 5/325 TABLET PO PRN (11:07)
[2019-09-06] MEDS ORDERED: Ondansetron 4 MG/2 ML VIAL IVP PRN (11:07)
[2019-09-06] MEDS ORDERED: diazePAM 10 MG TABLET PO PRN (11:07)
[2019-09-06] MEDS ORDERED: amLODIPine 5 MG TABLET PO SCH (11:07)
[2019-09-06] MEDS ORDERED: Gabapentin 400 MG CAPSULE PO SCH (11:07)
[2019-09-06] MEDS ORDERED: Furosemide 20 MG TABLET PO SCH (11:07)
[2019-09-06] MEDS ORDERED: EPINEPHrine 1 MG/ML VIAL IM PRN (11:07)
[2019-09-06] MEDS ORDERED: Sennosides 8.6 MG TABLET PO PRN (11:07)
[2019-09-06] MEDS ORDERED: MOM Conc 10 ML UD.LIQ PO PRN (11:07)
[2019-09-06] MEDS ORDERED: Temazepam 15 MG CAPSULE PO PRN (11:07)
[2019-09-06] MEDS ORDERED: Naloxone 0.4 MG/ML INJ IVP PRN (11:07)
[2019-09-06] MEDS ORDERED: *HR* Enoxaparin 30 MG/0.3 ML SYRINGE SQ SCH ×2 (13:15→18:00)
[2019-09-06] MEDS ORDERED: ceFAZolin sodium 3,000 MG in 0.9 % Sodium Chloride 100 ML IVPB SCH (13:15)
[2019-09-06] MEDS ORDERED: *HR* Enoxaparin 30 MG/0.3 ML SYRINGE SQ ONE (13:20)
[2019-09-06 13:26] VITALS: BP 130/73
[2019-09-06] MEDS ORDERED: Budesonide/Formoterol 80/4.5 1 PUFF INH IH SCH (22:00)
== END 2019-09-06 16:40 | disposition home or self-care (01) | DRG 483 ==
LOC: SAMDAY 06:33 → 3NENU 10:45
PROVIDERS: ADMIT Orthopaedic Surgery; ATTEND Orthopaedic Surgery